=== PATIENT | male | born 1955 | race Caucasian/White ===

== ENCOUNTER 2022-11-23 09:39 | Outpatient (CLI) | payer MEDICARE ==
[2022-11-23] MEDS ORDERED: Magnevist 469MG/ML 20 ML VIAL ONE (11:36)
== END 2022-11-23 09:40 | disposition home or self-care (01) ==
LOC: CSHMRI 09:39
PROVIDERS: ATTEND Urology
DX: C61 Malignant neoplasm of prostate (principal)
CPT/HCPCS: 72197; 82565

== ENCOUNTER 2023-12-24 05:19 | Emergency (ER) | payer MEDICARE ==
[2023-12-24 05:46] LABS: Actual Bicarbonate (HCO3v) 19.8 mEq/L (22-28); Analyzer IN Cardio CS ER; Base Excess -4.1 mEq/L (-2 - +2); Calcium, Ionized (venous) 1.13 mmol/L (1.16-1.32); Chloride (VBG) 102 mmol/L (98-106); Hematocrit-VBG 42 % (42.0-52.0); Hemoglobin (Hb) 14.4 g/dL (12.6-17.4); Potassium (VBG) 4.53 mmol/L (3.70-5.30); Puncture Site Other Site; RapidComm Collect By RN; Sodium 134 mmol/L (133-146); pH (venous) 7.397 (7.32-7.43)
[2023-12-24 05:50] LABS: #Basophils 0.04 10x3/uL (0.0-0.2); #Neutrophils 5.73 10x3/uL (1.5-8.4); %Basophils 0.6 % (0.0-2.0); %Eosinophils 1.4 % (0.0-6.0); %Lymphocytes 10.7 % (18.0-47.0); %Neutrophils 79.9 % (40.0-75.0); Hematocrit 38.5 % (38.8-50.0); Hemoglobin 12.8 g/dL (13.5-17.5); Mean Corpuscular HGB CONC 33.2 g/dL (32.0-36.0); Mean Corpuscular Hemoglobin 34.7 pg (27.0-33.0); Mean Corpuscular Volume 104.3 fL (81.2-95.1); Mean Platelet Volume 8.9 fL (7.4-10.4); Platelet Count 191 10x3/uL (150-450); RBC Distribution Width 12.8 % (11.5-14.5); Red Blood Cell (RBC) Count 3.69 10x6/uL (4.32-5.72); White Blood Cell (WBC) Count 7.2 10x3/uL (3.5-10.5)
[2023-12-24 06:12] LABS: ALT (SGPT) 23 U/L (8-55); AST (SGOT) 28 U/L (5-34); Albumin 3.9 g/dL (3.4-4.8); Alkaline Phosphatase 108 U/L (40-110); Anion Gap 16 mmol/L (10-20); BUN (Urea Nitrogen) 15 mg/dL (8.4-25.7); Calc. Creatinine Clearance 0 mL/min (70-130); Calcium 8.9 mg/dL (7.8-10.44); Carbon Dioxide 18 mmol/L (23-31); Chloride 104 mmol/L (98-107); Estimated GFR 96; Glucose 151 mg/dL (80-115); Potassium 4.5 mmol/L (3.5-5.1); Protein, Total 6.9 g/dL (5.8-8.1); Sodium 133 mmol/L (136-145)
[2023-12-24 06:13] LABS: Troponin I 0.016 ng/mL (< 0.028)
[2023-12-24] MEDS ORDERED: Nitroglycerin 0.4 MG TAB 1 EACH ONE (07:13)
[2023-12-24] MEDS ORDERED: Furosemide 40 MG (4 mL) VIAL ONE (08:13)
[2023-12-24 09:25] LABS: Magnesium 2.1 mg/dL (1.6-2.6)
[2023-12-24] MEDS ORDERED: Nitroglycerin 2% Ointment 1 INCH/1 GM Packet ONE (10:05)
[2023-12-24] MEDS ORDERED: hydrALAZINE 20 MG/ML VIAL ONE (10:29)
[2023-12-24] MEDS ORDERED: Losartan 50 MG TAB PO SCH (10:30)
== END 2023-12-24 10:50 | disposition short-term general hospital (02) ==
LOC: CSHERS 05:19
DX: I16.9 Hypertensive crisis, unspecified (principal); I11.0 Hypertensive heart disease with heart failure; I50.9 Heart failure, unspecified; I48.0 Paroxysmal atrial fibrillation; J44.9 Chronic obstructive pulmonary disease, unspecified; F17.210 Nicotine dependence, cigarettes, uncomplicated; Z79.01 Long term (current) use of anticoagulants; Z79.899 Other long term (current) drug therapy
CPT/HCPCS: 71045; 80053; 82805; 83735; 83880; 84484 ×2; 85025; 93005; J0360; J1940; 36415

== ENCOUNTER 2024-01-28 20:19 | Emergency (ER) | payer MEDICARE ==
[~2024-01-28 20:19] MED LIST: Iopamidol 370 76% 100 ML VIAL ONE
[2024-01-28] MEDS ORDERED: fentaNYL 50 mcg/mL 1 mL Vial ONE ×2 (21:07→22:08)
[2024-01-28 21:10] LABS: #Basophils 0.05 10x3/uL (0.0-0.2); #Eosinophils 0.26 10x3/uL (0.0-0.5); #Monocytes 0.73 10x3/uL (0.0-1.1); #Neutrophils 8.58 10x3/uL (1.5-8.4); %Basophils 0.5 % (0.0-2.0); %Eosinophils 2.4 % (0.0-6.0); %Monocytes 6.9 % (0.0-10.0); %Neutrophils 80.8 % (40.0-75.0); Hematocrit 32.6 % (38.8-50.0); Hemoglobin 10.6 g/dL (13.5-17.5); Mean Corpuscular HGB CONC 32.5 g/dL (32.0-36.0); Mean Corpuscular Hemoglobin 32.2 pg (27.0-33.0); Mean Corpuscular Volume 99.1 fL (81.2-95.1); Mean Platelet Volume 9.1 fL (7.4-10.4); Platelet Count 314 10x3/uL (150-450); RBC Distribution Width 13.1 % (11.5-14.5); Red Blood Cell (RBC) Count 3.29 10x6/uL (4.32-5.72); White Blood Cell (WBC) Count 10.6 10x3/uL (3.5-10.5)
[2024-01-28 21:23] LABS: ALT (SGPT) 17 U/L (8-55); AST (SGOT) 15 U/L (5-34); Alkaline Phosphatase 152 U/L (40-110); Anion Gap 18 mmol/L (10-20); BUN (Urea Nitrogen) 13 mg/dL (8.4-25.7); Bilirubin, Total 0.8 mg/dL (0.2-1.2); Calc. Creatinine Clearance 0 mL/min (70-130); Calcium 10.3 mg/dL (7.8-10.44); Carbon Dioxide 23 mmol/L (23-31); Chloride 99 mmol/L (98-107); Estimated GFR 97; Globulin 3.5 g/dL (2.4-3.5); Glucose 113 mg/dL (80-115); Lipase 9 U/L (8-78); Potassium 4.1 mmol/L (3.5-5.1); Protein, Total 7.5 g/dL (5.8-8.1); Sodium 136 mmol/L (136-145); Troponin I 0.011 ng/mL (< 0.028)
[2024-01-28] MEDS ORDERED: hydrALAZINE 20 MG/ML VIAL ONE (22:33)
[2024-01-28] MEDS ORDERED: Morphine 4 MG/ML VIAL ONE (23:00)
[2024-01-29] MEDS ORDERED: HYDROmorphone 0.5 MG/0.5 ML SYRINGE ONE (00:01)
== END 2024-01-29 00:31 | disposition short-term general hospital (02) ==
LOC: CSHERS 20:19
DX: K81.9 Cholecystitis, unspecified (principal); R07.89 Other chest pain; F17.210 Nicotine dependence, cigarettes, uncomplicated; I10 Essential (primary) hypertension; J44.9 Chronic obstructive pulmonary disease, unspecified; I48.91 Unspecified atrial fibrillation; Z79.01 Long term (current) use of anticoagulants
CPT/HCPCS: 71045; 74177; 80053; 83605; 83690; 83880; 84484; 85025; 93005; J0360; J2272; J3010

== ENCOUNTER 2024-04-18 09:55 | Outpatient (CLI) | payer MEDICARE | END 2024-04-18 09:56 | disposition home or self-care (01) | LOC: CSHCT 09:55 | PROVIDERS: ATTEND Family Medicine | DX: Z12.2 Encounter for screening for malignant neoplasm of respiratory organs (principal); F17.210 Nicotine dependence, cigarettes, uncomplicated | CPT/HCPCS: 71271; 76706 ==